=== PATIENT | female | born 1970 | race Caucasian/White ===

== ENCOUNTER → 2023-09-27 09:20 | Outpatient (CLI) | payer OTHER, MEDICAID, SELFPAY ==
[2023-09-27 10:39] LABS: Add Manual Diff / Slide Review NO; Basophils Absolute Auto 100 /uL (0-100); Basophils Percent Auto 1.3 % (0-2); Eosinophils Absolute Auto 100 /uL (0-450); Eosinophils Percent Auto 1.9 % (2-4); Hematocrit 45.1 % (36-46); Lymphocytes Absolute Auto 1500 /uL (1100-4500); Lymphocytes Percent Auto 31.2 % (25-40); Mean Corpuscular HGB Conc 33.2 % (30-36); Mean Corpuscular Hemoglobin 28.4 PG (26-34); Mean Corpuscular Volume 85.5 fL (80-100); Monocytes Absolute Auto 500 /uL (0-900); Neutrophils Absolute Auto 2700 /uL (1500-7000); Neutrophils Percent Auto 55.6 % (50-75); Platelet Count 198 X10^3/uL (150-400); Red Blood Cell Count 5.28 X10^6/uL (4.0-5.2); Red Cell Distribution Width 13.8 % (11.6-14.8); White Blood Cell Count 4.9 X10^3/uL (4.5-11.0)
[2023-09-27 10:56] LABS: Prothrombin Time 11.4 SECONDS (9.4-12.5)
[2023-09-27 10:57] LABS: Alanine Aminotransferase 85 IU/L (<35); Albumin 3.9 g/dL (3.5-5.0); Albumin Globulin Ratio 1.2 (1.0-2.8); Alkaline Phosphatase 88 U/L (38-126); Aspartate Aminotransferase 49 IU/L (14-36); BUN Creatinine Ratio 30.6 (6-22); Bilirubin Total 0.3 mg/dL (0.2-1.3); Blood Urea Nitrogen 22 mg/dL (7-17); Calcium 9.8 mg/dL (8.4-10.2); Carbon Dioxide 23 mmol/L (22-32); Chloride 107 mmol/L (98-107); Estimated Glomerular Filt Rate > 60 mL/min (>60); Globulin 3.3 g/dL (1.7-4.1); Glucose 101 mg/dL (70-100); HEMOLYSIS < 15 (0-50); Potassium 4.7 mmol/L (3.4-5.1); Sodium 137 mmol/L (137-145); Total Protein 7.2 g/dL (6.3-8.2)
[2023-09-28 07:36] LABS: HBsAg Confirmation Positive (.); HBsAg Screen Confirm. indicated (Negative); Hepatitis A Antibody IgM Negative (Negative); Hepatitis B Core Antibody IgM Negative (Negative); Hepatitis C Antibody Non Reactive (Non Reactive)
== END ==
PROVIDERS: PCP Family Medicine; Referring Provider Family Medicine; Visit Provider Family Medicine
DX: B18.1 Chronic viral hepatitis B without delta-agent (principal); R58 Hemorrhage, not elsewhere classified
CPT/HCPCS: 36415; 80053; 80074; 85025; 85610

== ENCOUNTER → 2023-10-12 08:39 | Outpatient (CLI) | payer OTHER, MEDICAID, SELFPAY ==
--- NOTE | 2023-10-12 08:42 | DI.US.S_ITS ---
PROCEDURE: US PELVIC COMPLETE INDICATIONS: postmenopausal bleeding TECHNIQUE: Real-time scanning was performed of the pelvic organs, with image documentation. Additional endovaginal scanning was necessary due to incomplete visualization of the adnexal and endometrial structures by transabdominal scanning. COMPARISON: None. FINDINGS: Uterus: Uterus is retroverted and normal in size at 3.4 x 5.3 x 0.7 cm. The myometrium is homogeneous. The endometrium measures 5.0 mm combined thickness. No uterine fibroids found. Ovaries: The right ovary measures 1.4 x 1.9 x 3.0 cm, with a calculated ovarian volume of 3.0 cc. The left ovary measures 1.0 x 1.2 x 2.2 cm, with a calculated ovarian volume of 2.3 cc. The ovaries have a normal sonographic appearance. Less than 12 follicles can be seen in each ovary. No adnexal masses are seen. Other: No pathologic free abdominal or pelvic fluid. IMPRESSION: Normal endometrial lining thickness, normal appearance of the ovaries bilaterally. Source of postmenopausal bleeding is not seen. We strive to produce accurate, complete, and clear reports of imaging services. To assist us in improving patient care, this report was composed using standard report templates and voice recognition software. Therefore, it may contain abnormal punctuation, insertions and/or omissions. Occasional wrong-word or sound-alike substitutions may occur. Though we review the report and make efforts to correct it, we do recommend that the report be read carefully in proper context to recognize any text inaccuracies. Dictated by: Grant Chun M.D. on 10/12/2023 at 14:16 Approved by: Grant Chun M.D. on 10/12/2023 at 14:18
== END ==
PROVIDERS: PCP Family Medicine; Referring Provider Family Medicine; Visit Provider Family Medicine
DX: N95.0 Postmenopausal bleeding (principal); B18.1 Chronic viral hepatitis B without delta-agent
CPT/HCPCS: 76856

== ENCOUNTER → 2023-10-18 10:33 | Outpatient (CLI) | payer OTHER, MEDICAID, SELFPAY ==
[2023-10-18 11:43] LABS: Alanine Aminotransferase 75 IU/L (<35); Albumin 4.1 g/dL (3.5-5.0); Albumin Globulin Ratio 1.3 (1.0-2.8); Alkaline Phosphatase 77 U/L (38-126); Aspartate Aminotransferase 48 IU/L (14-36); Bilirubin Total 0.3 mg/dL (0.2-1.3); Cholesterol 272 mg/dL (140-199); Globulin 3.2 g/dL (1.7-4.1); HDL Cholesterol 90 mg/dL (40-60); HEMOLYSIS < 15 (0-50); LDL Cholesterol Calculated 163 mg/dL (<100); Total Protein 7.3 g/dL (6.3-8.2); Triglycerides 94 mg/dL (35-150)
== END ==
PROVIDERS: PCP Family Medicine; Referring Provider Family Medicine; Visit Provider Family Medicine
DX: B18.1 Chronic viral hepatitis B without delta-agent (principal); R74.8 Abnormal levels of other serum enzymes
CPT/HCPCS: 36415; 80061; 80076

== ENCOUNTER → 2023-10-24 14:37 | Outpatient (CLI) | payer OTHER, MEDICAID, SELFPAY ==
--- NOTE | 2023-10-24 14:39 | DI.US.S_ITS ---
PROCEDURE: US ABDOMEN LIMITED INDICATIONS: RUQ PAIN TECHNIQUE: Real-time scanning was performed of the abdominal and retroperitoneal organs, with image documentation. COMPARISON: None. FINDINGS: Liver: Liver is diffusely coarse in echotexture and heterogeneous. No definitive discrete mass is seen. Gallbladder: No gallstones. No wall thickening. No pericholecystic edema. Negative sonographic Carvalho's sign. Biliary ducts: Intrahepatic bile ducts are non-dilated. Extrahepatic bile duct caliber measures 4.0 mm. Normal is 6-7 mm or less in diameter, or 10 mm or less post-cholecystectomy. Pancreas: Not well seen Miscellaneous: No free abdominal fluid. IMPRESSION: 1. Diffusely coarse and heterogeneous appearance of the liver and no definitive discrete mass is seen. Given the heterogeneity and history of chronic hepatitis, hepatic cirrhosis or other diffuse infiltrative process including a neoplastic process cannot be excluded and if indicated, hepatic protocol MRI could be performed for further assessment. Dictated by: Andres HE Interpreted: Alyce Swain MD on 10/25/2023 at 19:02 Transcribed by: CARLIE on 10/25/2023 at 19:04 Approved by: Alyce Swain M.D. on 10/26/2023 at 16:46
== END ==
PROVIDERS: Referring Provider Family Medicine; Visit Provider Family Medicine
DX: B18.1 Chronic viral hepatitis B without delta-agent (principal); R79.89 Other specified abnormal findings of blood chemistry
CPT/HCPCS: 76705